=== PATIENT | female | born 1985 | race African-American/Black ===

== ENCOUNTER 2023-01-01 07:21 | Emergency (ER) | payer SELFPAY | END 2023-01-01 11:00 | disposition home or self-care (01) | LOC: CSHERS 07:21 | DX: S00.83XA Contusion of other part of head, initial encounter (principal); Y04.8XXA Assault by other bodily force, initial encounter | CPT/HCPCS: 70450; 70486 ==

== ENCOUNTER 2023-07-03 15:04 | Emergency (ER) | payer SELFPAY ==
[2023-07-03] MEDS ORDERED: Dexamethasone 10 MG/ML VIAL ONE (16:14)
== END 2023-07-03 17:45 | disposition home or self-care (01) ==
LOC: CSHERS 15:04
DX: F41.9 Anxiety disorder, unspecified (principal)
CPT/HCPCS: 87081; 87430; 93005; J1100

== ENCOUNTER 2024-05-26 19:25 | Emergency (ER) | payer SELFPAY ==
[2024-05-26] MEDS ORDERED: Ketorolac Tromethamine 30 MG (1 mL) VIAL ONE (19:46)
[2024-05-26 20:21] LABS: SARS-CoV-2 E Target Negative; SARS-CoV-2 N2 Target Negative; SARS-CoV-2 NAA Rapid Test Not Detected (NotDetected); SARS-CoV-2 RdRP gene Negative
[2024-05-26 20:30] LABS: Hematocrit 34.1 % (34.9-44.5); Hemoglobin 10.6 g/dL (12.0-15.5); Mean Corpuscular HGB CONC 31.1 g/dL (32.0-36.0); Mean Corpuscular Hemoglobin 22.2 pg (27.0-33.0); Mean Corpuscular Volume 71.3 fL (81.6-98.3); Mean Platelet Volume 11.3 fL (7.4-10.4); Platelet Count 265 10x3/uL (150-450); RBC Distribution Width 15.7 % (11.5-14.5); Red Blood Cell (RBC) Count 4.78 10x6/uL (3.90-5.03); White Blood Cell (WBC) Count 8.6 10x3/uL (3.5-10.5)
[2024-05-26 20:32] LABS: BHCG - Serum Negative (NEGATIVE); Pregs Control Background? CLEAR/WHITE (CLR/WHITE); Pregs Control Bar Appear? YES (CONTROL BAR)
[2024-05-26 20:35] LABS: ALT (SGPT) 13 U/L (8-55); AST (SGOT) 12 U/L (5-34); Albumin 3.6 g/dL (3.5-5.0); Alkaline Phosphatase 73 U/L (40-110); Anion Gap 12 mmol/L (10-20); BUN (Urea Nitrogen) 11 mg/dL (7.0-18.7); Bilirubin, Total 0.2 mg/dL (0.2-1.2); Calc. Creatinine Clearance 0 mL/min (70-130); Calcium 10.3 mg/dL (7.8-10.44); Carbon Dioxide 20 mmol/L (22-29); Chloride 110 mmol/L (98-107); Estimated GFR 90; Globulin 2.9 g/dL (2.4-3.5); Glucose 94 mg/dL (70-105); Lipase 40 U/L (8-78); Magnesium 1.6 mg/dL (1.6-2.6); Protein, Total 6.5 g/dL (6.0-8.3); Sodium 138 mmol/L (136-145)
[2024-05-26 20:41] LABS: Troponin I Less than 0.010 ng/mL (< 0.028)
[2024-05-26 20:51] LABS: MDiff Complete? YES
[2024-05-26 20:54] LABS: Eosinophils 3 % (0-10); Lymphocytes 33 % (21-51); Monocytes 9 % (0-10); Neutrophil 55 % (42-75)
[2024-05-26 20:55] LABS: Large Platelets SLIGHT (None Seen); Microcytosis SLIGHT = 6-15 cells (100X) (0-5/hpf); Platelet Adequacy Comment Appears Adequate
[2024-05-26 20:56] LABS: Elliptocytes SLIGHT = 2-5 cells (100X) (0-1/hpf)
== END 2024-05-26 21:00 | disposition home or self-care (01) ==
LOC: CSHERS 19:25
DX: R09.1 Pleurisy (principal)
CPT/HCPCS: 71045; 80053; 83690; 83735; 83880; 84484; 84703; 85025; 93005; 96374; J1885; U0002

== ENCOUNTER 2024-10-18 08:30 | Emergency (ER) | payer OTHER, SELFPAY ==
[2024-10-18 09:32] LABS: #Basophils 0.06 10x3/uL (0.0-0.2); #Eosinophils 0.11 10x3/uL (0.0-0.5); #Monocytes 0.51 10x3/uL (0.0-1.1); #Neutrophils 3.55 10x3/uL (1.5-8.4); %Basophils 0.9 % (0.0-2.0); %Eosinophils 1.7 % (0.0-6.0); %Lymphocytes 33.9 % (18.0-47.0); %Neutrophils 55.3 % (40.0-75.0); Hematocrit 34.2 % (34.9-44.5); Hemoglobin 10.3 g/dL (12.0-15.5); Mean Corpuscular HGB CONC 30.1 g/dL (32.0-36.0); Mean Corpuscular Hemoglobin 21.3 pg (27.0-33.0); Mean Corpuscular Volume 70.8 fL (81.6-98.3); Mean Platelet Volume 10.9 fL (7.4-10.4); Platelet Count 278 10x3/uL (150-450); RBC Distribution Width 16.2 % (11.5-14.5); Red Blood Cell (RBC) Count 4.83 10x6/uL (3.90-5.03); White Blood Cell (WBC) Count 6.41 10x3/uL (3.5-10.5)
[2024-10-18 09:40] LABS: BHCG - Serum Negative (NEGATIVE); Pregs Control Background? CLEAR/WHITE (CLR/WHITE); Pregs Control Bar Appear? YES (CONTROL BAR)
[2024-10-18 09:46] LABS: ALT (SGPT) 10 U/L (8-55); AST (SGOT) 11 U/L (5-34); Albumin 3.5 g/dL (3.5-5.0); Alkaline Phosphatase 59 U/L (40-110); Anion Gap 10 mmol/L (10-20); BUN (Urea Nitrogen) 14 mg/dL (7.0-18.7); Bilirubin, Total 0.3 mg/dL (0.2-1.2); Calc. Creatinine Clearance 0 mL/min (70-130); Calcium 10.2 mg/dL (7.8-10.44); Carbon Dioxide 24 mmol/L (22-29); Chloride 110 mmol/L (98-107); Estimated GFR 89; Globulin 3.1 g/dL (2.4-3.5); Glucose 87 mg/dL (70-105); Potassium 4.2 mmol/L (3.5-5.1); Protein, Total 6.6 g/dL (6.0-8.3); Sodium 140 mmol/L (136-145)
[2024-10-18 09:59] LABS: Platelet Adequacy Comment Appears Adequate
[2024-10-18 10:01] LABS: Microcytosis SLIGHT = 6-15 cells (100X) (0-5/hpf); Ovalocytes SLIGHT = 2-5 cells (100X) (0-1/hpf)
[2024-10-18] MEDS ORDERED: diphenhydrAMINE 50 MG/ML VIAL ONE (10:08)
[2024-10-18] MEDS ORDERED: Acetaminophen 500 MG TAB ONE (10:08)
[2024-10-18] MEDS ORDERED: Metoclopramide HCl 10 MG (2 mL) VIAL ONE (10:08)
== END 2024-10-18 11:39 | disposition home or self-care (01) ==
LOC: CSHERS 08:30
DX: G43.909 Migraine, unspecified, not intractable, without status migrainosus (principal); R29.700 NIHSS score 0
CPT/HCPCS: 36415; 80053; 84703; 85025; 96361; 96374; 96375; J1200; J2765